=== PATIENT | male | born 1990 | race African-American/Black ===

== ENCOUNTER 2017-02-03 09:42 | Emergency (ER) | payer SELFPAY ==
[~2017-02-03] VITALS: Ht 177.8 cm; Wt 105.0 kg
[~2017-02-03 09:42] MED LIST: LORT5TAB PO; PROM25SU8 PO; Z.0.NO CURRENT MEDS
[2017-02-03 09:45] VITALS: BP 134/78; PULSE 68; RESP 16; TEMP 97.7; O2SAT 98
--- NOTE | 2017-02-03 10:54 | PD ---
HPI Chief Complaint: Pain: Acute or Chronic Time Seen by Provider: 10:39 Travel History International Travel<30 days: No Contact w/Intl Traveler<30days: No Traveled to known affect area: No History of Present Illness HPI 26-year-old male presents emergency Department with complaint of left knee pain 2-1/2 weeks. Denies injury. 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 Location is medial aspect of the left knee. Described as an ache. Mild in severity. Denies paresthesias, loss of sensation, decreased range of motion, decreased strength to the affected extremity. Worse on palpation and movement. Has not taken any medications to alleviate his symptoms. Is wearing a knee brace for support. Has no other complaints. No known allergies. No other modifying factors or associated signs and symptoms. History Social History Alcohol Use: Yes (OCC.) Tobacco Use: Yes (1-2 SIG./DAY) Allergies-Medications (Allergen,Severity, Reaction): Coded Allergies: No Known Allergies (Verified , 02/09/11) Reported Meds & Prescriptions Reported Meds & Active Scripts Active Phenergan (Promethazine HCl) 25 Mg Tab 12.5-25 Mg PO Q6HPRN FOR NAUSEA/VOMITING Lortab 5/500 (Acetaminophen/Hydrocodone Bitart) 5 Mg/500 Mg Tab 1-2 Tab PO Q6HPRN FOR PAIN Reported No Current Meds (Miscellaneous Medication) [facility] Review of Systems Except as stated in HPI: all other systems reviewed are Neg Physical Exam Narrative GENERAL: Well-nourished, well-developed black male patient, in no acute distress ; afebrile, nontoxic-appearing SKIN: Warm and dry. HEAD: Atraumatic. Normocephalic. EYES: Pupils equal and round. No scleral icterus. No injection or drainage. ENT: Mucosa pink and moist. Airway patent. NECK: Trachea midline. CARDIOVASCULAR: Regular rate. RESPIRATORY: No accessory muscle use. GASTROINTESTINAL: Round. MUSCULOSKELETAL: Left knee nonedematous, nonerythematous, and without ecchymosis ; full range of motion and flexion to 90; point tenderness to the medial aspect ; joint stable with negative drawer test; no obvious deformity. Left Lower extremity is supple and non-tense with 2+ pedal pulse and sensory intact and without erythema or edema. Ambulatory in room with a normal gait. NEUROLOGICAL: Awake and alert. Oriented 3. No obvious cranial nerve deficits. Motor grossly within normal limits. Normal speech. PSYCHIATRIC: Appropriate mood and affect; insight and judgment normal. Data Data Last Documented VS Vital Signs Date Time Temp Pulse Resp B/P (MAP) Pulse Ox O2 Delivery O2 Flow Rate FiO2 02/03/17 09:45 97.7 68 16 134/78 (96) 98 Room Air MDM Medical Screen Exam Complete: Yes Emergency Medical Condition: No Differential Diagnosis Knee strain, knee pain, bursitis, less likely fracture or dislocation Narrative Course 26-year-old male with left knee pain. Denies injury. I do not suspect fracture dislocation of the imaging is not necessary at this time. Vital signs are stable and the patient is stable for outpatient follow-up and treatment. The patient has no urgent or emergent medical complaints. There is no emergent or urgent medical need at this time. I instructed the patient to follow up with their primary care provider. A medical screening exam was performed: At the time of evaluation the presenting medical condition was determined not to be of an emergent nature. The patient was given the option of receiving additional care, but declined. Patient was given options for additional community resources from which to obtain care. The Patient Has Been advised to seek medical attention for their presenting complaint. The patient has been advised to return to the ER at any time if an emergent condition develops. Primary Impression: Encounter for medical screening examination Condition: Stable Taisha Watkins Feb 03, 2017 10:53
== END 2017-02-03 10:58 | disposition left against medical advice (07) ==
LOC: NEPD 09:42
DX: M25.562 Pain in left knee (principal)
CPT/HCPCS: 99281